=== PATIENT | male | born 1950 | race African-American/Black ===

== ENCOUNTER 2020-10-12 14:32 | Inpatient (IN) | payer OTHER ==
[~2020-10-12] VITALS: Ht 172.7 cm; Wt 98.5 kg
[2020-10-12 14:33] VITALS: BP 123/67
[2020-10-12] MEDS ORDERED: ZOCOR 20 MG TAB20 M1 PO (15:18)
[2020-10-12] MEDS ORDERED: PIOGLITAZONE15 MG (15:18)
[2020-10-12] MEDS ORDERED: METFORMIN HCL1000 MG PO (15:19)
[2020-10-12] MEDS ORDERED: LISINOPRIL40 MG PO (15:19)
[2020-10-12] MEDS ORDERED: AMLODIPINE BESY10 MG PO (15:19)
[2020-10-12] MEDS ORDERED: FINASTERIDE5 MG PO (15:20)
[2020-10-12] MEDS ORDERED: TAMSULOSIN HCL0.4 MG PO (15:20)
[2020-10-12 15:27] LABS: BASOPHILS 0.1 % (0.0-2.0); HEMOGLOBIN 13.1 gm/dL (14.0-18.0); LYMPHOCYTES 10.6 % (24.0-44.0); MCH 28.3 pg (26.0-34.0); MCHC 32.7 g/dL (28.0-37.0); MCV 86.5 fL (80.0-100.0); MONOCYTES 6.8 % (1.0-8.0); POLYS 82.5 % (36.0-66.0); RBC 4.62 mil/uL (4.50-6.00); RDW 14.7 % (10.5-14.5); WBC 3.6 thou/uL (4.0-11.0)
[2020-10-12 15:33] LABS: ANION GAP 13 mmol/L (7-16); BUN 33 mg/dL (7-18); CALCIUM 8.8 mg/dL (8.5-10.1); CHLORIDE 97 mmol/L (98-107); CO2 22 mmol/L (21-32); CREATININE 2.2 mg/dL (0.7-1.3); GLUCOSE 256 mg/dL (74-106); POTASSIUM 4.6 mmol/L (3.5-5.1); SODIUM 132 mmol/L (136-145)
[2020-10-12 15:41] LABS: TROPONIN-I <0.06 ng/mL (<0.06)
[2020-10-12 15:59] LABS: PCO2 26.5 mmHg (35.0-45.0); PO2 75.6 mmHg (80.0-100.0); pH 7.342 (7.360-7.450); sO2 94.7 % (92.0-98.0)
[2020-10-12 16:13] LABS: LARGE PLATELETS OCCASIONAL; PLATELET COUNT 85 thou/uL (150-400); PLATELET ESTIMATE DECREASED
[2020-10-12 16:14] LABS: ANISOCYTOSIS SLIGHT
--- NOTE | 2020-10-12 16:32 | EKG ---
[facility] [place] [address] ELECTROCARDIOGRAM REPORT Name: ROSALVA ARRIOLA Room #: [facility].#: [id number] Admission: Attend Phys: Discharge: Date of : 46 Report #: [id number] THIS REPORT FOR: cc: JOHNATHON MOORE Physician not on staff Tony Freitas MD [facility] ~ THIS REPORT FOR: //name// [facility] ED Test Date: 2020-10-12 Test Time: 16:21:45 Pat Name: ROSALVA ARRIOLA Department: Room: Gender: M Manager Practice: esheets : 1950 Requested By: Rubens Conner Order Number: [id number] MD: Tony Freitas Measurements Intervals Congers Rate: 75 P: VT: QRS: 25 QRSD: 93 T: -5 QT: 337 QTc: 377 Interpretive Statements Atrial fibrillation Borderline T abnormalities, inferior leads Baseline wander in lead(s) V6 No previous ECG available for comparison Electronically Signed On 10-12-2020 16:32:22 NURSE WOUND CARE by Tony Freitas [email or web address] <ELECTRONICALLY SIGNED> By: Tony Freitas MD, FACC 10/12/20 1632 1621 1621 Tony Freitas MD, FACC /EPI
[2020-10-12 19:57] LABS: BE(vivo) -4.3 mmol/L (-2 to +3); HCO3 19.8 mmol/L (22.0-26.0); PCO2 33.3 mmHg (35.0-45.0); PO2 72.6 mmHg (80.0-100.0); pH 7.391 (7.360-7.450); sO2 94.7 % (92.0-98.0)
[2020-10-12 20:46] VITALS: BP 96/56
[2020-10-12 23:30] VITALS: BP 90/46
--- NOTE | 2020-10-12 23:40 | NUR ---
TALKED WITH BUSINESS SOLUTIONS DIRECTOR, WILL CHANGE TO ICU STATUS
[2020-10-13] VITALS (64 sets, daily range): BP systolic 79–144; BP diastolic 42–89
--- NOTE | 2020-10-13 03:10 | NUR ---
>>>0135 PT ARRIVED ON FLOOR WITH ER NURSE. ON BIPAP 100% FIO2. ALERT AND ORIENTED, ABLE TO MAKE NEEDS KNOWN. ASSESSMENTS DONE DOCUMENTED. DENIES PAIN OR DICOMFORT. ALERT AND ORIENTEDX4. FAMILY NOTIFIED( DAUGHTER JACKELYN) OF PT'S ADMISSION TO ICU. >>>0310 PT'S SBP TREDNING DOWN, 88/55. HR 44. POLY ARMSTRONG NOTIFIED. SEE NEW ORDERS.
[2020-10-13 04:52] LABS: HEMATOCRIT 37.5 % (42.0-52.0); HEMOGLOBIN 12.5 gm/dL (14.0-18.0); MCH 28.8 pg (26.0-34.0); MCHC 33.2 g/dL (28.0-37.0); MCV 86.5 fL (80.0-100.0); RBC 4.33 mil/uL (4.50-6.00); RDW 14.9 % (10.5-14.5); WBC 3.8 thou/uL (4.0-11.0)
[2020-10-13 05:23] LABS: CALCIUM 8.3 mg/dL (8.5-10.1); CREATININE 1.8 mg/dL (0.7-1.3); MAGNESIUM 2.5 mg/dL (1.8-2.4); POTASSIUM 5.3 mmol/L (3.5-5.1)
--- NOTE | 2020-10-13 09:14 | NUR ---
ASSUMED CARE OF PT AT 0700. PT ALERT AND ORIENTED TIMES FOUR. VSS. LEVO GTT INFUSING. PT TOLERATING BIPAP. SPOKE WITH PT BROTHER AND DAUGHTER TO UPDATE ON CARE. WILL CONTINUE TRAVIS MONITOR.
--- NOTE | 2020-10-13 14:02 | NUR ---
chart review. unable to visit with ammon gutierrez covid +, and requiring bipap. conserving on ppe. cm spoke with daughter loretta griffith [phone]. education on transition of care dcp." dad and mom live in house. 4 steps enter. no steps inside. 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 independent. no dme. complete independent. i am going to check on mom. dad mom both covid +. they were tested at the same time. call anytime thank you"/daughter .
[2020-10-13 21:48] LABS: URINE BILIRUBIN NEGATIVE (Negative); URINE BLOOD TRACE (Negative); URINE CLARITY CLEAR; URINE COLOR YELLOW; URINE GLUCOSE-RANDOM* 2+ (Negative); URINE KETONES 1+ (Negative); URINE LEUKOCYTES-REFLEX NEGATIVE (Negative); URINE NITRITE-REFLEX NEGATIVE (Negative); URINE PROTEIN (DIPSTICK) 2+ (Negative); URINE SPECIFIC GRAVITY 1.025 (1.005-1.035); URINE UROBILINOGEN 0.2 E.U./dl (0.2-1.0)
[2020-10-13 22:04] LABS: BACTERIA-REFLEX 1-9 Few /HPF (None Seen); CASTS None Seen /LPF (None Seen); MUCUS 0-3 Light strn/LPF (None Seen); URIC ACID CRYSTALS >10 Many /LPF (None Seen); URINE RBC 0-2 Rare /HPF (0-2); URINE WBC-REFLEX 0-5 Rare /HPF (0-5)
[2020-10-14] VITALS (34 sets, daily range): BP systolic 93–132; BP diastolic 50–81
[2020-10-14 00:35] LABS: ALBUMIN 2.9 g/dL (3.4-5.0); DIRECT BILIRUBIN 0.3 mg/dL (<0.1-0.2); TOTAL BILIRUBIN 0.8 mg/dL (0.2-1.0); TOTAL PROTEIN 7.3 g/dL (6.4-8.2)
--- NOTE | 2020-10-14 00:48 | NUR ---
>>>1900 BEDSIDE SHIFT REPOST RECEIVED, CARE ASSUMED, PT IS AWAKE AND ALERT.DENIES PAIN. WILL CONTINUE TO MONITOR. >>>2000 ASSESSMENTS DONE DOCUMENTED. CONTINUES ON BIPAP SETTINGS DOCUMENTED. PT IS TOLERATING. ALERT AND ORIENTED X4. DENIES PAIN. DR MILLER ROUNDING ON PT, GIVEN UPDATE. SEE NEW ORDERS.
[2020-10-14 08:15] LABS: BE(vivo) -2.2 mmol/L (-2 to +3); HCO3 22.5 mmol/L (22.0-26.0); PCO2 38.8 mmHg (35.0-45.0); PO2 61.7 mmHg (80.0-100.0); pH 7.382 (7.360-7.450); sO2 91.4 % (92.0-98.0)
--- NOTE | 2020-10-14 10:27 | NUR ---
PATIENT ON BIPAP, AWAKE AND ALERT AND ORIENTED. VITALS STABLE, DESATURATES EASILY WHEN BIPAP MASK OFF. ABG COMPLETED THIS MORNING AND PER DR. FIELDS WHEN HE ROUNDED, PATIENT CAN BE GIVEN BREAK OFF BIPAP IF ABLE TO TOLERATE. PATIENT'S DAUGHTER CALLED, UPSET TION WAS NOT ABLE TO TALK TO RN AND HAD CALLED A COUPLE OF TIMES. I UPDATED HER AND EXPLAINED THAT I WAS IN THE ROOM TAKING CARE OF THEIR LOVED ONE AND COULDN'T COME TO THE PHONE RIGHT AWAY, SHE UNDERSTOOD. PATIENT PROGRESSING SLOWLY TOWARDS POC GOALS, IF ABLE TO KEEP BIPAP OFF WILL GET ORDERS FOR DIET FROM MD. ABLE TO VOID PER URINAL.
--- NOTE | 2020-10-14 13:01 | NUR ---
ABLE TO TOLERATE OPTIFLO FOR A FEW HOURS, DR. CAROL NICHOLS AND DIET ORDERED. PATIENT ABLE TO TOLERATE DIET W/O NAUSEA. WEANED OFF LEVOPHED.
--- NOTE | 2020-10-14 18:36 | NUR ---
LEVOPHED OFF SINCE 1240 TODAY. PT ON OPTIFLOW DURING MEALS AND PRN TOLERATED WITH BIPAP IN USE NEEDED. PT OUT OF BED THIS EVENING FOR DINNER. TOLERATING DIET WITHOUT COMPLAINTS. PT PROGRESSING TOWARD GOALS.
[2020-10-15] VITALS (35 sets, daily range): BP systolic 104–151; BP diastolic 53–92
[2020-10-15 04:09] LABS: BE(vivo) -2.9 mmol/L (-2 to +3); HCO3 21.2 mmol/L (22.0-26.0); PCO2 34.9 mmHg (35.0-45.0); pH 7.401 (7.360-7.450); sO2 91.7 % (92.0-98.0)
[2020-10-15 05:38] LABS: ABSOLUTE NEUTROPHILS 10.4 thou/uL (1.4-8.2); BASOPHILS 0.2 % (0.0-2.0); HEMATOCRIT 38.6 % (42.0-52.0); HEMOGLOBIN 12.7 gm/dL (14.0-18.0); LYMPHOCYTES 4.7 % (24.0-44.0); MCH 28.3 pg (26.0-34.0); MCHC 32.9 g/dL (28.0-37.0); MONOCYTES 5.5 % (1.0-8.0); PLATELET COUNT 138 thou/uL (150-400); POLYS 89.6 % (36.0-66.0); RBC 4.49 mil/uL (4.50-6.00); RDW 14.7 % (10.5-14.5); WBC 11.6 thou/uL (4.0-11.0)
[2020-10-15 06:09] LABS: DIRECT BILIRUBIN 0.2 mg/dL (<0.1-0.2); PHOSPHORUS 2.6 mg/dL (2.5-4.9)
[2020-10-15 06:43] LABS: ALBUMIN 2.7 g/dL (3.4-5.0); CALCIUM 7.7 mg/dL (8.5-10.1); CREATININE 1.2 mg/dL (0.7-1.3); POTASSIUM 5.4 mmol/L (3.5-5.1); TOTAL BILIRUBIN 0.9 mg/dL (0.2-1.0); TOTAL PROTEIN 6.4 g/dL (6.4-8.2)
--- NOTE | 2020-10-15 14:00 | NUR ---
ASSUMED CAARE OF PT AT 1130. PT ALERT AND ORIENTED RESTING IN CHAIR. PT TOLERATING OPTIFLOW AT THIS TIME. PT VALENTINA ANY NEEDS. IS AND IS EDUCATIONM GIVEN TO PT BY RN. WILL CONTINUE TO MONITOR.
--- NOTE | 2020-10-15 15:10 | NUR ---
chart review. he still requiring use of bipap, has nutritional support. spoke with daughter, no question on needs voiced. will cont following as needed for dc needs. dcp home with when medically stable.
[2020-10-16] VITALS (54 sets, daily range): BP systolic 79–164; BP diastolic 48–138
--- NOTE | 2020-10-16 01:51 | NUR ---
APPROX 0000. PATIENT HAD AN EPISODE OF SLURRED SPEECH AND UPON ASSESSEMENT PT HAD RIGHT SIDED WEAKNESS. SUPERVISOR ORCHARD CALLED AND ORDER FOR START HEAD CT GIVEN. PATIENT OFF TO CT. REMAINS ON BIPAP. VSS. TOLERATED CT WELL. PATIENT BACK FROM CT. ABLE TO MOVE RIGHT SIDE UPPER AND LOWER EXTREMITY. SPEECH MORE COHERENT. NEGATIVE CT RESULTS RECEIVED. COPY PLACED IN THE PATIENTS CHART. WILL KEEP MONITOING.
[2020-10-16 04:21] LABS: ALBUMIN 2.4 g/dL (3.4-5.0); CALCIUM 7.6 mg/dL (8.5-10.1); CREATININE 1.2 mg/dL (0.7-1.3); DIRECT BILIRUBIN 0.2 mg/dL (<0.1-0.2); PHOSPHORUS 2.3 mg/dL (2.5-4.9); POTASSIUM 4.9 mmol/L (3.5-5.1); TOTAL BILIRUBIN 0.7 mg/dL (0.2-1.0); TOTAL PROTEIN 6.6 g/dL (6.4-8.2)
[2020-10-16 07:43] LABS: PCO2 36.6 mmHg (35.0-45.0); PO2 64.6 mmHg (80.0-100.0); pH 7.417 (7.360-7.450); sO2 93.1 % (92.0-98.0)
--- NOTE | 2020-10-16 15:55 | NUR ---
CONSULTED TO PLACE A CENTRAL FOR A PATIENT IN ICU WITH RR FAILURE. DISCUSSED CENTRAL LINE PLACEMENT WITH THE PATIENT PRIOR TO HIS INTUBATION AND HE VERBALIZED UNDERSTANDING OF BENIFITS AND RISKS OF BLEEDING AND INFECTION. THE RIGHT JUGULAR WAS WIDLEY PATENT. A #6F TRIPLE LUMEN CENTRAL LINE WAS PLACED PER HOSPITAL POLICY AFTER A BEDSIDE TIMEOUT WAS COMPLETED. THE 25CM LINE WAS ADVANCED TO 6CM EXTERNAL. A STAT CHEST XRAY WAS ORDERED FOR CONFIRMATION
[2020-10-16 16:54] LABS: BE(vivo) -3.3 mmol/L (-2 to +3); HCO3 23.7 mmol/L (22.0-26.0); PCO2 51.1 mmHg (35.0-45.0); PO2 83.2 mmHg (80.0-100.0); pH 7.284 (7.360-7.450); sO2 94.9 % (92.0-98.0)
--- NOTE | 2020-10-16 19:34 | NUR ---
PT ON BIPAP/ OPTIFLOW THIS AM. PT STATES THAT HE IS VERY TIRED AND HIS BREATHING IS WEARING HIM OUT. DR FIELDS DISCUSSED INTUBATION WITH PT AND HIS . PT AND AGREEABLE TO INTUBATION THIS AFTERNOON. INTUBATED BY DR FIELDS AT 1445. IV TEAM HERE FOR CENTRAL LINE PLACEMENT. STARTED ON PROPOFOL, FENT, AND LEVO GTTS. SPUTUM C &S SENT FOLLOWING INTUBATION. ORDER FOR TUBE FEEDING. AWAITING XRAY CONFIRMATION OF OG TUBE PLACEMENT. SPOKE WITH PT'S THIS EVENING AND UPDATED HER OF PT STATUS. REPORT GIVEN TO GLUE SPECIALTY SUPERVISOR RN.
[2020-10-17] VITALS (81 sets, daily range): BP systolic 84–149; BP diastolic 54–98
[2020-10-17 04:54] LABS: HCO3 24.7 mmol/L (22.0-26.0); PCO2 55.5 mmHg (35.0-45.0); PO2 91.1 mmHg (80.0-100.0); sO2 95.7 % (92.0-98.0)
[2020-10-17 05:00] LABS: pH 7.267 (7.360-7.450)
[2020-10-17 05:20] LABS: HEMATOCRIT 38.4 % (42.0-52.0); HEMOGLOBIN 12.4 gm/dL (14.0-18.0); MCH 27.9 pg (26.0-34.0); MCHC 32.2 g/dL (28.0-37.0); MCV 86.6 fL (80.0-100.0); PLATELET COUNT 112 thou/uL (150-400); RBC 4.43 mil/uL (4.50-6.00); RDW 15.4 % (10.5-14.5); WBC 14.5 thou/uL (4.0-11.0)
[2020-10-17 05:27] LABS: ALBUMIN 2.6 g/dL (3.4-5.0); DIRECT BILIRUBIN 0.5 mg/dL (<0.1-0.2); TOTAL BILIRUBIN 1.2 mg/dL (0.2-1.0); TOTAL PROTEIN 5.9 g/dL (6.4-8.2)
[2020-10-17 05:29] LABS: ALBUMIN 2.5 g/dL (3.4-5.0); CALCIUM 7.6 mg/dL (8.5-10.1); CREATININE 1.1 mg/dL (0.7-1.3); POTASSIUM 4.8 mmol/L (3.5-5.1); TOTAL BILIRUBIN 1.1 mg/dL (0.2-1.0); TOTAL PROTEIN 6.3 g/dL (6.4-8.2)
[2020-10-17 12:28] LABS: ABSOLUTE NEUTROPHILS 12.6 thou/uL (1.4-8.2); METAMYELOCYTES 3 %
[2020-10-17 12:30] LABS: BURR CELLS 1+
[2020-10-17 12:31] LABS: ANISOCYTOSIS 1+
--- NOTE | 2020-10-17 18:22 | NUR ---
0900 DISCUSSED W/PHARMACY REGARDING ADMIN OF FLOMAX. MED HELD PER PHARMACY RECCOMENDATIONS. 1045 NEW ETT TUBE INSERTED VIA DR. FIELDS VENT SETTINGS REMAINED UNCHANGED. 1700 UDATED PTs DAUGHTER JACKELYN CURRENT STATUS. DAUGHTER REQUESTED PHYSICAN TO CALL PTs ([facility]) TOMORROW. NUMBER IS LISTED.
[2020-10-18] VITALS (35 sets, daily range): BP systolic 91–120; BP diastolic 54–76
[2020-10-18 05:54] LABS: ALBUMIN 2.1 g/dL (3.4-5.0); CALCIUM 7.7 mg/dL (8.5-10.1); CREATININE 1.6 mg/dL (0.7-1.3); DIRECT BILIRUBIN 0.3 mg/dL (<0.1-0.2); PHOSPHORUS 4.8 mg/dL (2.5-4.9); POTASSIUM 5.3 mmol/L (3.5-5.1); TOTAL BILIRUBIN 0.6 mg/dL (0.2-1.0); TOTAL PROTEIN 5.6 g/dL (6.4-8.2)
--- NOTE | 2020-10-18 06:00 | NUR ---
REMAINS INTUBATED AND SEDATED 100 % FIO2 CONT IN AFIB WILL CONT TO MONITOR
--- NOTE | 2020-10-18 10:12 | NUR ---
Recommend tube feed vital high protein goal of 45ml/hr. Defer fluid needs to physician. If water flushes are started, add 1 packet beneprotein in every flush.
[2020-10-18 12:21] LABS: BE(vivo) -3.7 mmol/L (-2 to +3); HCO3 22.7 mmol/L (22.0-26.0); PCO2 46.3 mmHg (35.0-45.0); PO2 78.4 mmHg (80.0-100.0); sO2 94.4 % (92.0-98.0)
[2020-10-18 12:22] LABS: pH 7.308 (7.360-7.450)
--- NOTE | 2020-10-18 12:58 | NUR ---
chart review. he still requires need of vent, and nutritional support. will cont following as needed for dc needs.
--- NOTE | 2020-10-18 18:42 | NUR ---
0730 UPDATED PT REGARDING PLAN OF CARE. 1030INFORMED HURA ABOUT PT 1.6 CREAT AND 5.3 K+. RECIEVED DIETARY RECCOMENDATION FOR VIATAL HP GOAL OF 45 ML/HR. NO PUMPS AVAILABLE 4 BOLUS DOSES OF ENTERAL FEEDING OK PER RD. 1210 CRITICAL ABG PER RT. [address] HUYNH ANSWERING SERVICE. 1230 UPDATED KO OF ABG'S NO NEW ORDERS AT THIS TIME. 1300 UPDATED DAUGHTER REGARDING PT STATUS. NO BM. AFEBRILE. FIO2 NOW 70%.HP BOLUS GIVEN X2 AT 1200 AND 1800. PROGRESSING IN PLAN OF CARE.
[2020-10-19] VITALS (22 sets, daily range): BP systolic 90–129; BP diastolic 55–78
[2020-10-19 05:20] LABS: BE(vivo) -4.5 mmol/L (-2 to +3); HCO3 21.1 mmol/L (22.0-26.0); PO2 91.1 mmHg (80.0-100.0); sO2 96.5 % (92.0-98.0)
[2020-10-19 06:01] LABS: HEMATOCRIT 33.7 % (42.0-52.0); HEMOGLOBIN 10.9 gm/dL (14.0-18.0); MCH 28.2 pg (26.0-34.0); MCHC 32.5 g/dL (28.0-37.0); MCV 86.8 fL (80.0-100.0); PLATELET COUNT 122 thou/uL (150-400); RBC 3.88 mil/uL (4.50-6.00); RDW 15.6 % (10.5-14.5); WBC 11.6 thou/uL (4.0-11.0)
[2020-10-19 06:27] LABS: CALCIUM 7.4 mg/dL (8.5-10.1); CREATININE 1.3 mg/dL (0.7-1.3); MAGNESIUM 2.6 mg/dL (1.8-2.4); POTASSIUM 4.9 mmol/L (3.5-5.1)
[2020-10-19 06:39] LABS: ALBUMIN 2.1 g/dL (3.4-5.0); DIRECT BILIRUBIN 0.3 mg/dL (<0.1-0.2); TOTAL BILIRUBIN 0.6 mg/dL (0.2-1.0); TOTAL PROTEIN 5.4 g/dL (6.4-8.2)
--- NOTE | 2020-10-19 07:07 | NUR ---
pt maintained on sedation. Does not follow commands. withdraws to painful stimuli. Pt seem comfortable. vitals stable. Bath completed this am. No other events. will continue with POC
[2020-10-19 08:05] LABS: ABSOLUTE NEUTROPHILS 10.3 thou/uL (1.4-8.2); METAMYELOCYTES 3 %; MYELOCYTES 1 %
[2020-10-19 08:06] LABS: PLATELET ESTIMATE DECREASED
--- NOTE | 2020-10-19 18:44 | NUR ---
1100 SPOKE W/DR HUYNH REGARDING DECREASING SEDATION. 1500 RT REPORTED SUCTIONING BLOOD CLOTS IN ETT. CONTINUE TO MONITOR.1300 UPDATED PT DAUGHTER REGARDING CURRENT STATUS. 1530 FI02 DECREASED TO 65%.NO BM. AFEBRILE.
[2020-10-20] VITALS (23 sets, daily range): BP systolic 97–122; BP diastolic 57–75
[2020-10-20 03:13] LABS: BE(vivo) -2.5 mmol/L (-2 to +3); HCO3 23.2 mmol/L (22.0-26.0); PCO2 43.5 mmHg (35.0-45.0); PO2 83.8 mmHg (80.0-100.0); pH 7.345 (7.360-7.450); sO2 95.8 % (92.0-98.0)
[2020-10-20 05:58] LABS: ALBUMIN 1.9 g/dL (3.4-5.0); CALCIUM 7.6 mg/dL (8.5-10.1); DIRECT BILIRUBIN 0.3 mg/dL (<0.1-0.2); PHOSPHORUS 2.8 mg/dL (2.5-4.9); POTASSIUM 4.8 mmol/L (3.5-5.1); TOTAL BILIRUBIN 0.6 mg/dL (0.2-1.0); TOTAL PROTEIN 5.3 g/dL (6.4-8.2)
--- NOTE | 2020-10-20 07:19 | NUR ---
PT REQUIRING MORE OXYGEN THIS SHIFT.RT INCREASED THE FIO2 FROM 65% TO 75% AND TO 100%.PT DESATING TO 70s AND SUSTAINING SATURATIONS OF LESS THAN 88% WITHOUT RECOVERING.ON FIO2 OF 100%.PT SATURATIONS AT 90-93%.DR HUYNH WAS NOTIFIED,N/O GIVEN FOR LABS AND XRAYS.ABGS NOT CRITICAL.XRAY RESULTS AWAITING.REMAINS ON VENT W/SUPPORT OF FENTANYL,VERSED AND PROPOFOL.TIO PERES VALDEMAR URINE W/SEDIMENTS.WILL CONT W/POC.
--- NOTE | 2020-10-20 12:00 | NUR ---
PATIENT CONTINUES TO DESAT RT INCREASED PATIENT PEEP FROM 12 TO 14 AND ALSO INCREASED RATE FROM 18 TO 20 BEFORE THE VENT CHANGES PATIENT SAT WAS 80-84%. AFTER VENT CHANGES PATIENT SAT INCREASED TO 93% AND HEART RATED ALSO LOWERED BY INCREEASE IN SETTING. PATIENT NOW IN HIGH FOLWER POSITION
[2020-10-20 15:09] LABS: HEMATOCRIT 32.8 % (42.0-52.0); HEMOGLOBIN 10.6 gm/dL (14.0-18.0); MCH 27.9 pg (26.0-34.0); MCHC 32.3 g/dL (28.0-37.0); MCV 86.3 fL (80.0-100.0); RBC 3.8 mil/uL (4.50-6.00); RDW 15.7 % (10.5-14.5); WBC 12.6 thou/uL (4.0-11.0)
--- NOTE | 2020-10-20 16:08 | NUR ---
PT INTUBATED AND SEDATED, VENT SETTINGS CHANGED TO AC-20 PEEP-14. SEDATION VACATION NOT INDICATED DUE TO HIGH FIO2/PEEP. INCREASED BLOOD TINGED SECREATIONS FROM ETT, CLOTS PRESENT, PROVIDER AWARE. PT AFEBRILE, NO BM, ADEQUATE UOP, SKIN INTACT. TOLERATING TUBE FEED BOLUS/H20 FLUSH. PROVIDER WAS GIVEN FAMILIES PHONE NUMBER TO UPDATE. PT HAS POSITIVE COUGH/GAG/CORNEAL/WITHDRAW TO PAIN. PT HAS BEEN UPDATED AND EDUCATED ON CONDITION AND POC. PT SLOWLY PROGRESSING TOWARDS POC.
[2020-10-21] VITALS (8 sets, daily range): BP systolic 101–134; BP diastolic 59–77
--- NOTE | 2020-10-21 04:43 | NUR ---
PT IS ON THE VENT. COVID POSITIVE ENHANCE PRECAUTIONS. MODERATELY SEDATED WITH MEDS WITH VENT AT THIS TIME. RT TAKEN HIS FIO2 AND TITRATION OF IT DURING THE NIGHT. BATH DONE ON PT WITH CARE. A FIB ON THE MONIOR. KINSEY TO DD WITH VALDEMAR URINE PRESNET. GENERALIZAED EDEMA NOTED. LUNGS ARE DIMINISHED. RT SUTIONED AND CHANGED DRESSING ON TRACH WITH CARE. PT IS CLEAN NOW. WILL CONTINUE TO ASSESS AND MONITOR PER NURSING AT THIS TIME PER CARE.
[2020-10-21 07:04] LABS: HEMATOCRIT 32.8 % (42.0-52.0); HEMOGLOBIN 10.7 gm/dL (14.0-18.0); MCH 28.3 pg (26.0-34.0); MCHC 32.6 g/dL (28.0-37.0); MCV 86.7 fL (80.0-100.0); RBC 3.79 mil/uL (4.50-6.00)
[2020-10-21 07:16] LABS: ALBUMIN 1.8 g/dL (3.4-5.0); CALCIUM 7.7 mg/dL (8.5-10.1); CREATININE 1.2 mg/dL (0.7-1.3); DIRECT BILIRUBIN 0.3 mg/dL (<0.1-0.2); PHOSPHORUS 3.3 mg/dL (2.5-4.9); POTASSIUM 4.8 mmol/L (3.5-5.1); TOTAL BILIRUBIN 0.6 mg/dL (0.2-1.0); TOTAL PROTEIN 5.6 g/dL (6.4-8.2)
--- NOTE | 2020-10-21 19:08 | NUR ---
ASSUMED CARE @ 0700, PT ASSESSMENTS AND VS COMPLETE PER ICU PROTOCOL. DR BURNETTE HERE TO ROUND THIS AM, NO ORDERS RECIEVED. 02 INCREASED TO 80 FROM 70, ETT ADVANCED BY 3CM PER DR HUYNH. CONTINOUS TF STARTED @ 10ML/HR. WILL CONT TO MONITOR.
[2020-10-22] VITALS (16 sets, daily range): BP systolic 104–132; BP diastolic 66–83
--- NOTE | 2020-10-22 03:50 | NUR ---
TOOK OVER CARE OF PATIENT AT 2029. ASSESSMENTS CHARTED. MEDS GIVEN CHARTED. FENTANYL, PROPOFOL AND VERSED GIVEN THROUGHOUT SHIFT FOR SEDATION AND PAIN. AMIO DRIP FOR AFIB. PATIENT SEDATED THROUGHOUT SHIFT. AFIB ON TELEMETRY. LUNGS CLEAR OVER DIMINISHED. OV VENT, FIO2 AT 80. GETTING TUBE FEED AT 10ML/HR Q6 ACCU CHECKS COVERED EACH TIME. PATIENT IN RESTRAINTS TO PREVENT REMOVAL OF MEDICAL EQUIPMENT. FALL PRECAUTIONS IN PLACE DURING SHIFT.
[2020-10-22 04:07] LABS: HEMATOCRIT 31.9 % (42.0-52.0); HEMOGLOBIN 10.4 gm/dL (14.0-18.0); MCH 28.3 pg (26.0-34.0); MCHC 32.5 g/dL (28.0-37.0); RBC 3.66 mil/uL (4.50-6.00); RDW 16.3 % (10.5-14.5); WBC 10.9 thou/uL (4.0-11.0)
[2020-10-22 04:35] LABS: ALBUMIN 1.7 g/dL (3.4-5.0); CALCIUM 7.8 mg/dL (8.5-10.1); CREATININE 0.9 mg/dL (0.7-1.3); DIRECT BILIRUBIN 0.2 mg/dL (<0.1-0.2); PHOSPHORUS 3.7 mg/dL (2.5-4.9); POTASSIUM 5.4 mmol/L (3.5-5.1); TOTAL BILIRUBIN 0.6 mg/dL (0.2-1.0); TOTAL PROTEIN 5.4 g/dL (6.4-8.2)
[2020-10-23] VITALS (11 sets, daily range): BP systolic 107–134; BP diastolic 67–82
--- NOTE | 2020-10-23 03:21 | NUR ---
PT IS ON THE VENT COVID POSTIVIE ENCHANCED PRECAUTIONS.REMIANS ON SEDATION WITH VENTIALATION. MODEATELY SEDATED AT THIS TIME. RESTRATINTS WRIST X2. SCDS ON BILAERAL. LUNGS ARE DIMINISHED. MINIMAL SUCTION WHEN SUCTIONED. GOLD. KINSEY TO DD. TOLERATING TUBE FEEDING. REPOSITION NEEDED WITH CARE IF TOLERATING IT. AND MAINTAINING DRIPS AT THIS TIME PER ERIK FOR CARE OF PT. KINSEY TO DD WITH YELLOW URINE PRESENT.
[2020-10-23 05:02] LABS: CALCIUM 8.1 mg/dL (8.5-10.1); POTASSIUM 5.1 mmol/L (3.5-5.1)
[2020-10-23 05:09] LABS: HEMATOCRIT 33.8 % (42.0-52.0); HEMOGLOBIN 10.9 gm/dL (14.0-18.0); MCH 28.1 pg (26.0-34.0); MCHC 32.4 g/dL (28.0-37.0); MCV 86.8 fL (80.0-100.0); RBC 3.89 mil/uL (4.50-6.00); WBC 11.6 thou/uL (4.0-11.0)
--- NOTE | 2020-10-23 06:02 | NUR ---
PT IS ON THE VENT.
--- NOTE | 2020-10-23 19:39 | NUR ---
FIO2 100%. SEDATION VACATION FOR 1 HOUR TODAY DURING FACETIME WITH FAMILY. ATTEMPTED TO OPEN EYES BUT DID NOT FOLLOW ANY COMMANDS. FAMILY UPDATED BY THIS NURSE AND DR. BURNETTE. TMAX 100.8
[2020-10-24] VITALS (16 sets, daily range): BP systolic 88–114; BP diastolic 56–75
[2020-10-24 04:33] LABS: BE(vivo) 1.2 mmol/L (-2 to +3); HCO3 25.6 mmol/L (22.0-26.0); PCO2 39.8 mmHg (35.0-45.0); PO2 57.6 mmHg (80.0-100.0); pH 7.426 (7.360-7.450); sO2 90.7 % (92.0-98.0)
[2020-10-24 04:43] LABS: HEMATOCRIT 33.7 % (42.0-52.0); HEMOGLOBIN 10.9 gm/dL (14.0-18.0); MCH 28.1 pg (26.0-34.0); MCHC 32.4 g/dL (28.0-37.0); MCV 86.5 fL (80.0-100.0); RBC 3.89 mil/uL (4.50-6.00); RDW 16.4 % (10.5-14.5); WBC 14.2 thou/uL (4.0-11.0)
[2020-10-24 04:58] LABS: CREATININE 0.9 mg/dL (0.7-1.3); POTASSIUM 4.8 mmol/L (3.5-5.1)
--- NOTE | 2020-10-24 07:57 | NUR ---
ASSESSMENTS CHARTED, MEDS CHARTED GIVEN. PATIENT RUNNING FEVER DURING SHIFT. STARTED AT 100.9, GAVE BATH, UNCOVERED PATIENT AND LOWERED ROOM TEMPERATURE. 101.9 AT MIDNIGHT, PLACED ICE SACKS IN ARMPITS AND GROIN AREA. 103.6 AT 0400. RENEWED ICE BAGS, LOWERED TEMP IN ROOM AGAIN AND GAVE TYLENOL. FENTANYL, PROPOFOL AND VERSED RUNNING THROUGHOUT SHIFT. PATIENT GIVEN BATH ON FRONT SIDE, WHEN TURNED PATIENT DESATED TO 60'S AND STRUGGLED TO REGAIN OXYGEN LEVEL. FALL PRECAUTIONS IN PLACE.
--- NOTE | 2020-10-24 19:16 | NUR ---
1600 SPOKE WITH PT'S DAUGHTER AND UPDATED HER SHE REQUESTED FACETIME VISIT WITH PT. [id number] FACETIME DONE. PT'S AND DAUGHTER UPDATED OVER FACETIME AT THAT TIME WELL. PT O2 SAT UNABLE TO TOLERATE TURNS PT DESATS TO 80'S WHEN TOUCHED. HEEL MEDIX BOOTS APPLIED AND CONTINUOUS ROTATION THERAPY IN USE BUT PT UNABLE TO TOLERATE SIDE/SIDE TURNS OR SEDATION VACATION. REMAINS SEDATED WITH PROPOFOL/FENT/VERSED TODAY. TUBE FEEDING INFUSING AND PT TOLERATING WELL WITH MINIMAL RESIDUALS. REPORT GIVEN TO PRODUCTION WELDING SUPERVISOR RN.
[2020-10-25] VITALS (20 sets, daily range): BP systolic 90–115; BP diastolic 57–71
[2020-10-25 04:08] LABS: BE(vivo) -0.3 mmol/L (-2 to +3); HCO3 24.4 mmol/L (22.0-26.0); PCO2 39.8 mmHg (35.0-45.0); PO2 60.9 mmHg (80.0-100.0); pH 7.405 (7.360-7.450); sO2 91.5 % (92.0-98.0)
[2020-10-25 06:47] LABS: HEMATOCRIT 28.3 % (42.0-52.0); HEMOGLOBIN 9.3 gm/dL (14.0-18.0); MCH 28.3 pg (26.0-34.0); MCHC 32.8 g/dL (28.0-37.0); MCV 86.3 fL (80.0-100.0); RBC 3.28 mil/uL (4.50-6.00); WBC 12.7 thou/uL (4.0-11.0)
[2020-10-25 07:11] LABS: CALCIUM 8.2 mg/dL (8.5-10.1); POTASSIUM 5.2 mmol/L (3.5-5.1)
--- NOTE | 2020-10-25 11:02 | NUR ---
Nutrition: due to decrease in propofol rec Increase tube feeds to 55 mL/hr
--- NOTE | 2020-10-25 14:07 | NUR ---
chart review. he remains on vent, with nutritional support. cm visited with daughter loretta via home phone call. "thank you for calling. will do video phone call any around 1630 thank you for checking on mom and i. we are doing ok"/daughter loretta. will cont following as needed for dc needs.
--- NOTE | 2020-10-25 20:16 | NUR ---
Spoke with family today, unable to do facetime because of short staffing and having 3 patients. The family was very understanding. This nurse did update them on condition and answered questions. Very critical, desats on 100% fio2.
[2020-10-26] VITALS (17 sets, daily range): BP systolic 94–121; BP diastolic 58–72
[2020-10-26 04:56] LABS: BE(vivo) -0.4 mmol/L (-2 to +3); HCO3 24.9 mmol/L (22.0-26.0); PCO2 43.7 mmHg (35.0-45.0); PO2 58.9 mmHg (80.0-100.0); pH 7.374 (7.360-7.450); sO2 89.9 % (92.0-98.0)
[2020-10-26 04:58] LABS: HEMATOCRIT 30.4 % (42.0-52.0); MCH 28.1 pg (26.0-34.0); MCHC 32.7 g/dL (28.0-37.0); MCV 85.8 fL (80.0-100.0); PLATELET COUNT 145 thou/uL (150-400); RBC 3.55 mil/uL (4.50-6.00); RDW 16.1 % (10.5-14.5); WBC 14.1 thou/uL (4.0-11.0)
[2020-10-26 05:48] LABS: ALBUMIN 1.5 g/dL (3.4-5.0); CALCIUM 8.2 mg/dL (8.5-10.1); CREATININE 1.1 mg/dL (0.7-1.3); POTASSIUM 5.5 mmol/L (3.5-5.1); TOTAL BILIRUBIN 0.5 mg/dL (0.2-1.0); TOTAL PROTEIN 5.9 g/dL (6.4-8.2)
--- NOTE | 2020-10-26 06:17 | NUR ---
PATIENTS CARES WERE ASSUMED AT SHIFT CHANGE. PATIENT WAS ASSESSED ACND MEDS WERE PASSED. INTABATION AND SEDATION WAS MAINTAINED. NO SADATION VACATION WAS DONE THS SHIFT. PATIENT WAS TURN HOWEVER HE HAS A HARD TIME WITH ALOT OF MOTION AND IT TAKES HIM ABOUT TWENTY MINUTES TO RECOVER. PATIENT IS IN A RESTFUL POSITION.
[2020-10-26 07:06] LABS: ABSOLUTE NEUTROPHILS 13.4 thou/uL (1.4-8.2); ANISOCYTOSIS 1+; BURR CELLS 1+; PLATELET ESTIMATE DECREASED; POIKILOCYTOSIS 1+; POLYCHROMASIA 1+; SCHISTOCYTES 1+
--- NOTE | 2020-10-26 18:48 | NUR ---
ASSUMED CARE @ 0700 10/26/20, PT ASSESSMENTS AND VSS COMPLETE PER ICU PRT. DR FIELDS AND DR DESIR HERE DURING THIS SHIFT TO ROUND, ORDERS RECIEVED AND EXECUTED. DR JAMA AT BEDSIDE ABLE TO TALK TO @ 1625, MEETING TO FOLLOW-UP WITH CHILDREN OF THE PT. CALLED @ 1528, CODE VERIFIED AND UPDATE GIVEN. OVERALL PT HAD AN UNEVENTFUL DAY.
--- NOTE | 2020-10-26 19:44 | NUR ---
1930 - SPOKE WITH PT'S DTR JACKELYN FOR ROUGHLY 15 MINUTES. SHE WAS EMOTIONALLY UPSET ON THE PHONE AND FEELS LIKE WE ARE "GIVING UP" ON HER FATHER. I EXPLAINED THAT WE ARE NOT GIVING UP ON HER FATHER BUT THAT HE IS STILL REQUIRING FULL SUPPORT ON THE VENTILATOR AND PER DR BEAR, HIS PROGNOSIS IS POOR. I EXPLAINED HOW THE VIRUS HAS BEEN AFFECTING HIS LUNGS. SHE STATED THAT SHE BETTER UNDERSTOOD THE SITUATION AFTER OUR DISCUSSION. SHE STATED THAT SHE AND HER MOTHER ARE NOT YET IN AGREEMENT REGARDING THE PLAN FOR HER FATHER. JACKELYN WAS TOLD SHE CAN CALL BACK ANY TIME IF SHE HAS FURTHER QUESTIONS.
--- NOTE | 2020-10-26 22:46 | NUR ---
2108- PT'S DTR JACKELYN CALLED UNIT AGAIN FOR UPDATE ON HER FATHER. SHE REQUESTED THE HOSPITALIST OR STEREOTYPER CALL HER TOMORROW. WILL PASS ALONG TO DAY SHIFT RN IN THE MORNING.
[2020-10-27] VITALS (42 sets, daily range): BP systolic 87–133; BP diastolic 47–77
--- NOTE | 2020-10-27 05:47 | NUR ---
PT REMAINS SEDATED WITH FENTANYL, VERSED, AND PROPOFOL FOR VENT MANAGEMENT. ATTEMPTED TO MANNUALLY TURN PATIENT, BUT HE DOES NOT TOLERATE TURNS OR THE HOB BEING LOWERED, HE DESATS INTO MID-80S. TF VIA OGT. TOLERATING WELL WITH MINIMAL RESIDUALS. KINSEY TO DD WITH ADEQUATE URINE OUTPUT. BP HAS REMAINED STABLE ALL SHIFT, WITH SBP>100. NOT PROGRESSING WELL TOWARD POC GOALS. WILL GIVE REPORT TO ONCOMING NURSE.
--- NOTE | 2020-10-27 06:36 | NUR ---
PT O2 SATS IN MID-80S FOR ROUGHLY THE PAST HOUR. INCREASED SEDATION TO SEE IF THAT WOULD HELP IMPROVE HIS OXYGEN SATURATION. SPO2 NOW 86-87% ON 100% FIO2. NOTIFIED DR FIELDS. NO NEW ORDERS RECEIVED.
--- NOTE | 2020-10-27 08:43 | NUR ---
RN HAD NOTE TO CALL PT'S DAUGHTER JACKELYN. RN CALLED AND JACKELYN WAS VERY TEARFUL ON PHONE. JACKELYN WANTED TO KNOW WHAT HIS OXYGEN SATURATION RATE WAS AND IF WE HAVE GIVEN HIM ALL RESOURCES AVAILABLE TO TREAT COVID. JACKELYN REQUESTED A VIDEO CALL WITH HER FATHER TODAY AND WE AGREED TO ATTEMPT A VIDEO CALL AT 1030 AM. JACKELYN ASKED IF WE AT [facility] WERE TREATING COVID-19 WITH CBD OIL. RN STATED THAT WE ARE NOT.
--- NOTE | 2020-10-27 12:53 | NUR ---
ASSUMED CARE OF PATIENT AT 0600. PATIENT HAD JUST BEEN TURNED AND SATURATION WAS IN THE MID 80'S. THROUGH FIRST ROUNDS HIS SATURATION DID NOT IMPROVE. DISCUSSED WITH DR FIELDS AND WE LOWERED HIS PEEP TO SEE IF OPTIMAL PEEP WAS REACHED WITH THE LOWER NUMBER. PATIENT'S SATURATION HAS INCREASED TO 92% WITH THE LOWERED PEEP. WILL CONTINUE TO MONITOR HIS SATURATIONS AND INSURE HE HAS ADEQUATE OXYGENATION.
[2020-10-28] VITALS (44 sets, daily range): BP systolic 81–116; BP diastolic 44–64
[2020-10-28 05:23] LABS: BE(vivo) -2.7 mmol/L (-2 to +3); HCO3 25.7 mmol/L (22.0-26.0); PCO2 64.9 mmHg (35.0-45.0); PO2 65.1 mmHg (80.0-100.0); sO2 87.8 % (92.0-98.0)
[2020-10-28 05:24] LABS: pH 7.216 (7.360-7.450)
[2020-10-28 06:03] LABS: HEMATOCRIT 26.8 % (42.0-52.0); HEMOGLOBIN 8.7 gm/dL (14.0-18.0); MCH 28.6 pg (26.0-34.0); MCHC 32.5 g/dL (28.0-37.0); MCV 88.2 fL (80.0-100.0); PLATELET COUNT 124 thou/uL (150-400); RBC 3.04 mil/uL (4.50-6.00); RDW 16.1 % (10.5-14.5); WBC 9.1 thou/uL (4.0-11.0)
[2020-10-28 06:22] LABS: ALBUMIN 1.8 g/dL (3.4-5.0); CALCIUM 8.5 mg/dL (8.5-10.1); CREATININE 1.1 mg/dL (0.7-1.3); POTASSIUM 5.4 mmol/L (3.5-5.1); TOTAL BILIRUBIN 0.5 mg/dL (0.2-1.0); TOTAL PROTEIN 5.9 g/dL (6.4-8.2)
[2020-10-28 09:02] LABS: ABSOLUTE NEUTROPHILS 8.2 thou/uL (1.4-8.2); ANISOCYTOSIS 1+; METAMYELOCYTES 1 %; MYELOCYTES 1 %
[2020-10-28 09:03] LABS: SCHISTOCYTES RARE
--- NOTE | 2020-10-28 11:13 | NUR ---
ON THE VENT, LIGHTLY SEDATED. A-FIB ON THE MONITOR. PATIENT DESATURATING INTO THE 70'S THIS MORNING DESPITE BEING ON FIO2 100%, DR. FIELDS PAGED OVERHEAD AND CAME TO THE UNIT, CALLED DAUGHTER ON THE PHONE WITH UPDATED. DAUGHTER THEN CALLED ME AND I UPDATED HER AGAIN. REQUEST TO SET UP FACETIME THIS AFTERNOON IF POSSIBLE. TOLERATING TUBEFEEDING. NOT PROGRESSING TOWARDS POC GOALS.
--- NOTE | 2020-10-28 13:32 | NUR ---
ATTEMPTED TO CALL PATIENT'S DAUGHTER TWICE THIS AFTERNOON TO FACE TIME WITH HER DAD BUT UNABLE TO REACH-DAUGHTER'S PHONE JUST RANG AND RANG WITH NO ANSWER.
--- NOTE | 2020-10-28 15:16 | NUR ---
ATTEMPTED TO CALL DAUGHTER 3 TIMES THIS AFTERNOON BUT UNABLE TO GET A HOLD OF HER, FINALLY CALLED PATIENT'S AND THEN THE DAUGHTER CALLED ME SHORTLY AFTER, WE DISCUSSED VISITATION PER DR. MEDINA AND MARINE FIRE FIGHTER SANTY'S DIRECTIVE OF AUTHORIZING A FAMILY ONE TIME 15MINUTE VISIT, DAUGHTER STATED THERE WOULD BE PATIENT'S FOUR DAUGHTERS AND PATIENT'S . SHE ALSO STATED THAT THEY ARE NOT READY TO MAKE ANY DECISION RIGHT NOW AND THEY WILL NOT BE ABLE TO VISIT TODAY. I TOLD HER THAT I WILL LET SANTY KNOW OF OUR PHONE CONVERSATION AND LET HER KNOW TO CALL WHEN THEY ARE READY FOR THE VISIT SO IT CAN BE CLEARED BY DRILL DOCTOR AND MARINE FIRE FIGHTER.
--- NOTE | 2020-10-28 18:41 | NUR ---
DR. JAMA TALKED WITH PATIENT'S DAUGHTER ON THE PHONE AND ARRANGED FOR A VISIT WITH 6 FAMILY MEMBERS. I ALSO TALKED WITH JACKELYN ON THE PHONE AND GOT A LIST OF PEOPLE VISITING AND INFORMED E.D. PIGSKIN TRIMMER AND THE SHOE CLEANER. FAMILY CAME IN AND THEY WERE INFORMED NOT TO TAKE ANY PICTURES. THEY WERE GIVEN TIME AT THE CLOSED GLASS DOOR.
--- NOTE | 2020-10-28 20:07 | NUR ---
AT APPROXIMATELY 1910 ROD POOL (PT'S DAUGHTER) ENTER THE PT'S ROOM WITHOUT AUTHORIZATION. PT WAS FULL AWARE ANY PHYSICAL CONTACT WITH THE PATIENT WAS FORBIDDEN PER HOSPITAL POLICY. THE AFOREMENTIONED DAUGHTER ALONG WITH ANOTHER FAMILY MEMBER, CLINTON ARRIOLA STOOD AT THE PT'S DOOR FOR THE BEGINNING OF THEIR NON-CONTACT VISIT. SOON AFTERWARDS, ROD ENTERED THE ROOM STATING THAT SHE JUST WANT TO "HOLD HER FATHERS HAND AND THAT SHE DIDN'T CARE IF SHE GOT IN TROUBLE FOR IT". SHE WAS ASKED TO LEAVE AND SECURITY WAS NOTIFIED. CLINTON NEVER ENTERED THE PT'S ROOM BUT STOOD WATCHING AT THE DOOR. ROD EXITED THE ROOM CRYING AND STATING THAT "NO ONE UNDERSTANDS THE POSITION THAT SHE WAS IN, AND NOT UNTIL YOU ARE IN THAT POSITION WILL YOU EVER UNDERSTAND". BOTH LADIES EXITED THE ICU BEFORE SECURITY'S ARRIVAL. THEY WERE ESCORTED OUT BY DODIE BARRIGA. PLEASE NOTE THAT ROD DID IN FACT, RUB HER DAD'S HEAD AND SQUEEZED HIS HAND BEFORE EXITING THE ROOM.
[2020-10-29] VITALS (11 sets, daily range): BP systolic 60–120; BP diastolic 25–60
--- NOTE | 2020-10-29 03:05 | NUR ---
THE PT'S DAUGHTER, ROD POOL, CALLED BACK AND SPOKE TO THIS RN. ROD WANTED TO SINCERELY APOLOGIZE TO THIS RN AND TO JEREMÍAS STOLL FOR THE WAY SHE ACTED (GOING INTO THE PT'S ROOM). SHE STATED THAT SHE "FELT LIKE THIS WOULD BE THE LAST TIME SHE WOULD TOUCH HER DAD'S HAND WHILE HE WAS STILL WARM". SHE WANTED EVERYONE TO KNOW THAT SHE DOES NORMALLY GO AGAINST THE RULES BUT SHE COULD NOT CONTAIN HER SELF FROM NOT BEING ABLE TO SAY GOOD BY TO HER FATHER. ROD EXPRESSED THAT SHE WOULD TRY TO CALL TOMORROW TO SPEAK WITH JEREMÍAS STOLL TO PERSONALLY TELL HER THAT SHE WAS SORRY FOR DOING WHAT SHE DID. REASSURANCE AND EMPATHY WAS GIVEN.
--- NOTE | 2020-10-29 06:19 | NUR ---
THIS RN CALLED THE PT'S DAUGHTER, JACKELYN ARRIOLA AND INFORMED HER THAT THE PT'S HEART RATE HAD DROPPED IN THE 30'S AND SAS SUSTAINING. THIS RN WAS TALKING TO THE DAUGHTER, PT'S HR INCREASED TO 72. JACKELYN REQUESTED THAT SHE BE CALLED ON HER CELL PHONE # [phone]. SHE HAD NO FURTHER QUESTIONS FOR THIS RN. WILL CONTINUE TO MONITOR PT.
--- NOTE | 2020-10-29 08:44 | NUR ---
0745- Pt's daughter Joya, who is listed as our primary contact was called and informed that her father . Joya was very calm and stated she would let her mother and other daughters know of her father's passing. Joya did not know home information at this time and states she will have her mother call the hospital when she talks to her. Joya asked about time of but did not have any other questions at this time. Condolances given by this RN.
--- NOTE | 2020-10-29 11:10 | NUR ---
WALLET WITH 32 CARDS INCLUDING DL, SS CARD, STORE CARDS AND CREDIT CARDS. BLACK SHOES, CELL PHONE, WATCH , GOLD PANTS, BELT, PHONE CASE ATTACHED TO BELT, CHECKBOOK, PASSPORT, CHANGE, BLACK TOLIETRY BAG, 17 SILVER COLOR COIN DOLLARS, BURGANDY HOODIE, GLASSES, MAROON POLO SHIRT SENT WITH BODY WITH SECURITY.
== END 2020-10-29 07:30 | DRG 870 ==
LOC: ER 14:32 → ICU 17:10 → EROBS 17:10 → ICU 10-13 01:11
PROVIDERS: Emergency Medicine; Hospitalist; Internal Medicine Pulmonary Disease; Pediatrics; Specialist; ADMIT Internal Medicine; ATTEND Internal Medicine
DX: A41.89 Other specified sepsis (principal); U07.1 COVID-19; J96.01 Acute respiratory failure with hypoxia; J12.89 Other viral pneumonia; G92 Toxic encephalopathy; E43 Unspecified severe protein-calorie malnutrition; N17.9 Acute kidney failure, unspecified; D61.818 Other pancytopenia; D68.59 Other primary thrombophilia; E11.9 Type 2 diabetes mellitus without complications; I10 Essential (primary) hypertension; E78.5 Hyperlipidemia, unspecified; N40.0 Benign prostatic hyperplasia without lower urinary tract symptoms; R65.20 Severe sepsis without septic shock; Z66 Do not resuscitate; Z51.5 Encounter for palliative care; Z88.0 Allergy status to penicillin; Z79.899 Other long term (current) drug therapy
CPT/HCPCS: 10078